=== PATIENT | female | born 1935 | race Hispanic/Latino ===

== ENCOUNTER 2023-09-28 11:16 | Inpatient (IN) ==
[2023-09-28] MEDS ORDERED: IOPAMIDOL 100 ML BOTTLE IV ONE (11:17)
[2023-09-28] MEDS ORDERED: 0.9 % SODIUM CHLORIDE 1,000 ML IV ONE ×2 (12:19→13:53)
[2023-09-28 13:00] LABS: Basophils # (Auto) 0.01 K/mcL (0.00-0.30); Basophils % (Auto) 0.1 % (0.0-2.0); Eosinophils # (Auto) 0 K/mcL (0.00-0.70); Eosinophils % (Auto) 0 % (0.0-7.0); Hematocrit 45.7 % (34.1-44.9); Hemoglobin 15.6 g/dL (11.2-15.7); Lymphocytes # (Auto) 0.66 K/mcL (1.50-4.80); Lymphocytes % (Auto) 5.6 % (15.5-49.0); Mean Cell Volume 91.2 fL (80.0-100.0); Mean Corpuscular HGB Conc 34.1 g/dL (31.0-36.0); Mean Platelet Volume 10.3 fL (8.8-12.5); Monocytes # (Auto) 0.63 K/mcL (0.10-0.90); Monocytes % (Auto) 5.3 % (1.0-12.0); Neutrophils % (Auto) 88.7 % (38.0-78.0); Platelet Count 317 K/mcL (140-440); RBC 5.01 M/mcL (3.59-5.38); Red Cell Distribution Width 12.2 % (11.5-14.5); WBC 11.8 K/mcL (4.5-11.0)
[2023-09-28 13:27] LABS: ALT/SGPT 31 U/L (<40); AST/SGOT 22 U/L (<32); Albumin 4.1 gm/dL (3.2-5.2); Albumin/Globulin Ratio 1.2 (1.0-2.3); Alkaline Phosphatase 125 U/L (39-117); Bilirubin,Total 0.7 mg/dL (0.1-1.0); Blood Urea Nitrogen 15 mg/dL (8-23); Calcium 9.5 mg/dL (8.6-10.4); Carbon Dioxide 18 mmol/L (22-30); Chloride 97 mmol/L (96-108); Globulin 3.5 gm/dL (2.2-3.7); Glomerular Filtration Rate 67; Glucose 442 mg/dL (70-105)
[2023-09-28] MEDS ORDERED: PIPERACILLIN SODIUM/TAZOBACTAM 3.375 GM in DEXTROSE 5% IN WATER 50 ML IV ONE (13:52)
[2023-09-28 14:53] LABS: ABG Methemoglobin 0.3 % (0.4-1.5); Total Hemoglobin 16.1 gm/Dl (12.0-15.0); VBG Base Excess -5 (-2-3); VBG HCO3 17.8 mmol/L (24.0-28.0); VBG Oxygen Saturation 94.5 % (40.0-70.0); VBG PH 7.42 U (7.32-7.42); VBG PO2 138.4 mmHg (25.0-40.0); VBG Total CO2 18.7 mmol/L (25.0-29.0)
[2023-09-28] MEDS ORDERED: INSULIN REGULAR, HUMAN 1 UNIT/0.01 ML UNIT IV ONE (16:33)
[2023-09-28 17:13] LABS: Appearance,Urine Clear (Clear); Bacteria,Urine 0 /hpf (0); Bilirubin,Urine Negative (Negative); Color,Urine Yellow; Culture Indicated,Urine Yes; Glucose,Urine (UA) 500 mg/dL (Negative); Ketones,Urine Trace mg/dL (Negative); Leukocyte Esterase,Urine Negative /uL (Negative); Nitrate,Urine Positive (Negative); Protein,Urine Negative (Negative); Specific Gravity,Urine 1.015 (1.000-1.035); Urine Blood Negative ery/mcL (Negative); Urine Hyaline Cast < 1 /lph (0-2); Urine RBC 4 /hpf (0-3); Urine Squamous Epithelial Cell < 1 /hpf (0-4); Urine WBC 15 /hpf (0-4); Urobilinogen,Urine Normal
[2023-09-28] MEDS ORDERED: ONDANSETRON 4 MG/2 ML VIAL IV PRN (17:56)
[2023-09-28] MEDS ORDERED: DEXTROSE 50% 50 ML VIAL IV PRN (17:59)
[2023-09-28] MEDS ORDERED: DEXTROSE 31 GM ORAL.SUSP PO PRN (17:59)
[2023-09-28 18:20] LABS: Basophils # (Auto) 0.01 K/mcL (0.00-0.30); Basophils % (Auto) 0.1 % (0.0-2.0); Eosinophils # (Auto) 0 K/mcL (0.00-0.70); Eosinophils % (Auto) 0 % (0.0-7.0); Hematocrit 43.7 % (34.1-44.9); Hemoglobin 14.9 g/dL (11.2-15.7); Lymphocytes # (Auto) 1.18 K/mcL (1.50-4.80); Mean Cell Volume 90.9 fL (80.0-100.0); Mean Corpuscular HGB Conc 34.1 g/dL (31.0-36.0); Mean Platelet Volume 9.9 fL (8.8-12.5); Monocytes # (Auto) 1.15 K/mcL (0.10-0.90); Monocytes % (Auto) 8.8 % (1.0-12.0); Neutrophils % (Auto) 81.9 % (38.0-78.0); Platelet Count 303 K/mcL (140-440); RBC 4.81 M/mcL (3.59-5.38); Red Cell Distribution Width 12.4 % (11.5-14.5); WBC 13.1 K/mcL (4.5-11.0)
[2023-09-28 19:09] LABS: Estimated Average Glucose(eAG) 220 mg/dL; Hemoglobin A1C 9.3 % Hgb (4.0-6.0)
[2023-09-28] MEDS: METOCLOPRAMIDE 10 MG/2 ML VIAL IV SCH (20:27)
[2023-09-28] MEDS: 0.9 % SODIUM CHLORIDE 1,000 ML IV SCH (20:27)
[2023-09-28] MEDS: PIPERACILLIN SODIUM/TAZOBACTAM 3.375 GM in DEXTROSE 5% IN WATER 100 ML IV SCH (20:39)
[2023-09-28] MEDS ORDERED: INSULIN LISPRO 1 UNIT/0.01 ML UNIT SQ SCH (21:00)
[2023-09-29] MEDS: INSULIN LISPRO 1 UNIT/0.01 ML UNIT SQ SCH ×4 (00:18→17:42)
[2023-09-29] MEDS: METOCLOPRAMIDE 10 MG/2 ML VIAL IV SCH ×4 (00:19→17:42)
[2023-09-29] MEDS: PIPERACILLIN SODIUM/TAZOBACTAM 3.375 GM in DEXTROSE 5% IN WATER 100 ML IV SCH ×4 (00:40→22:08)
[2023-09-29 06:38] LABS: ALT/SGPT 22 U/L (<40); AST/SGOT 18 U/L (<32); Albumin 3.5 gm/dL (3.2-5.2); Albumin/Globulin Ratio 1.3 (1.0-2.3); Alkaline Phosphatase 94 U/L (39-117); Bilirubin,Direct 0.2 mg/dL (<0.3); Bilirubin,Total 0.9 mg/dL (0.1-1.0); Blood Urea Nitrogen 16 mg/dL (8-23); Calcium 8.8 mg/dL (8.6-10.4); Carbon Dioxide 20 mmol/L (22-30); Chloride 105 mmol/L (96-108); Globulin 2.6 gm/dL (2.2-3.7); Glomerular Filtration Rate 83; Glucose 233 mg/dL (70-105); Lactate Dehydrogenase 156 U/L (135-225); Phosphorous 2.9 mg/dL (2.5-4.5); Triglycerides 112 mg/dL (<150); Uric Acid 1.8 mg/dL (2.5-8.0)
[2023-09-29 06:42] LABS: Basophils # (Auto) 0.02 K/mcL (0.00-0.30); Basophils % (Auto) 0.2 % (0.0-2.0); Eosinophils # (Auto) 0.01 K/mcL (0.00-0.70); Eosinophils % (Auto) 0.1 % (0.0-7.0); Hematocrit 42.4 % (34.1-44.9); Hemoglobin 14.2 g/dL (11.2-15.7); Lymphocytes # (Auto) 1.33 K/mcL (1.50-4.80); Lymphocytes % (Auto) 12.6 % (15.5-49.0); Mean Corpuscular HGB Conc 33.5 g/dL (31.0-36.0); Mean Platelet Volume 10.6 fL (8.8-12.5); Monocytes # (Auto) 1.05 K/mcL (0.10-0.90); Neutrophils % (Auto) 76.7 % (38.0-78.0); Platelet Count 299 K/mcL (140-440); RBC 4.56 M/mcL (3.59-5.38); Red Cell Distribution Width 12.7 % (11.5-14.5); WBC 10.5 K/mcL (4.5-11.0)
[2023-09-29] MEDS: INSULIN GLARGINE, HUMAN 1 UNIT/0.01 ML SQ SCH (08:52)
[2023-09-29] MEDS: 0.9 % SODIUM CHLORIDE 1,000 ML IV SCH (14:30)
[2023-09-30] MEDS: METOCLOPRAMIDE 10 MG/2 ML VIAL IV SCH ×4 (00:04→17:17)
[2023-09-30] MEDS: INSULIN LISPRO 1 UNIT/0.01 ML UNIT SQ SCH ×4 (00:13→17:18)
[2023-09-30] MEDS: 0.9 % SODIUM CHLORIDE 1,000 ML IV SCH ×4 (01:50→19:39)
[2023-09-30] MEDS: PIPERACILLIN SODIUM/TAZOBACTAM 3.375 GM in DEXTROSE 5% IN WATER 100 ML IV SCH ×3 (05:43→22:11)
[2023-09-30 07:54] LABS: ALT/SGPT 18 U/L (<40); AST/SGOT 22 U/L (<32); Albumin 3.5 gm/dL (3.2-5.2); Albumin/Globulin Ratio 1.3 (1.0-2.3); Alkaline Phosphatase 85 U/L (39-117); Bilirubin,Direct < 0.2 mg/dL (0-0.3); Bilirubin,Total 0.6 mg/dL (0.1-1.0); Blood Urea Nitrogen 13 mg/dL (8-23); Calcium 8.5 mg/dL (8.6-10.4); Carbon Dioxide 18 mmol/L (22-30); Chloride 108 mmol/L (96-108); Globulin 2.7 gm/dL (2.2-3.7); Glomerular Filtration Rate 83; Glucose 178 mg/dL (70-105); Lactate Dehydrogenase 164 U/L (135-225); Phosphorous 2.7 mg/dL (2.5-4.5); Triglycerides 96 mg/dL (<150); Uric Acid 1.3 mg/dL (2.5-8.0)
[2023-09-30] MEDS: INSULIN GLARGINE, HUMAN 1 UNIT/0.01 ML SQ SCH (08:28)
[2023-09-30 08:36] LABS: Prothrombin Time 13.7 sec (11.9-14.5)
[2023-09-30] MEDS ORDERED: fentaNYL 100 MCG/2 ML VIAL ONE (08:52)
[2023-09-30] MEDS ORDERED: ROCURONIUM 10 MG/ML ML IV ONE (08:52)
[2023-09-30] MEDS ORDERED: PROPOFOL 200 MG/20 ML VIAL IV ONE (08:52)
[2023-09-30] MEDS ORDERED: ONDANSETRON 4 MG/2 ML VIAL ONE (08:52)
[2023-09-30] MEDS ORDERED: POTASSIUM CHLORIDE 20 MEQ in DEXTROSE 5% IN WATER 250 ML IV ONE (09:02)
[2023-09-30] MEDS ORDERED: PHENYLephrine 1 MG/10 ML SYRINGE (ANEST) ONE (09:53)
[2023-09-30] MEDS ORDERED: BUPIVACAINE PF 0.5% 10 ML VIAL ONE (10:35)
[2023-09-30] MEDS ORDERED: SUGAMMADEX SODIUM 200 MG/2 ML VIAL IV ONE (11:10)
[2023-09-30] MEDS: HYDROmorphone 1 MG/ML SYRINGE IV PRN (18:47)
[2023-09-30] MEDS: 0.9 % SODIUM CHLORIDE 10 ML SYRINGE IV SCH ×3 (18:53→22:11)
[2023-10-01] MEDS: METOCLOPRAMIDE 10 MG/2 ML VIAL IV SCH ×2 (00:12→05:35)
[2023-10-01] MEDS: INSULIN LISPRO 1 UNIT/0.01 ML UNIT SQ SCH ×5 (00:20→23:32)
[2023-10-01] MEDS: 0.9 % SODIUM CHLORIDE 1,000 ML IV SCH ×2 (02:30→10:46)
[2023-10-01] MEDS: PIPERACILLIN SODIUM/TAZOBACTAM 3.375 GM in DEXTROSE 5% IN WATER 100 ML IV SCH ×3 (05:42→22:24)
[2023-10-01] MEDS: HYDROmorphone 1 MG/ML SYRINGE IV PRN (05:58)
[2023-10-01] MEDS: 0.9 % SODIUM CHLORIDE 10 ML SYRINGE IV SCH ×4 (05:59→21:46)
[2023-10-01 06:22] LABS: Basophils # (Auto) 0.03 K/mcL (0.00-0.30); Basophils % (Auto) 0.4 % (0.0-2.0); Eosinophils # (Auto) 0.06 K/mcL (0.00-0.70); Eosinophils % (Auto) 0.8 % (0.0-7.0); Hematocrit 39.7 % (34.1-44.9); Hemoglobin 13.1 g/dL (11.2-15.7); Lymphocytes # (Auto) 1.69 K/mcL (1.50-4.80); Lymphocytes % (Auto) 21.4 % (15.5-49.0); Mean Platelet Volume 10.3 fL (8.8-12.5); Monocytes # (Auto) 0.73 K/mcL (0.10-0.90); Monocytes % (Auto) 9.3 % (1.0-12.0); Platelet Count 257 K/mcL (140-440); RBC 4.18 M/mcL (3.59-5.38); Red Cell Distribution Width 12.7 % (11.5-14.5); WBC 7.9 K/mcL (4.5-11.0)
[2023-10-01 06:30] LABS: ALT/SGPT 19 U/L (<40); AST/SGOT 22 U/L (<32); Albumin/Globulin Ratio 1.3 (1.0-2.3); Alkaline Phosphatase 67 U/L (39-117); Bilirubin,Direct 0.2 mg/dL (<0.3); Bilirubin,Total 0.8 mg/dL (0.1-1.0); Blood Urea Nitrogen 9 mg/dL (8-23); Calcium 8.1 mg/dL (8.6-10.4); Carbon Dioxide 20 mmol/L (22-30); Chloride 107 mmol/L (96-108); Globulin 2.3 gm/dL (2.2-3.7); Glomerular Filtration Rate 83; Glucose 125 mg/dL (70-105); Lactate Dehydrogenase 168 U/L (135-225); Phosphorous 2.6 mg/dL (2.5-4.5); Triglycerides 98 mg/dL (<150); Uric Acid 1.2 mg/dL (2.5-8.0)
[2023-10-01] MEDS: INSULIN GLARGINE, HUMAN 1 UNIT/0.01 ML SQ SCH (09:44)
[2023-10-01] MEDS: HEPARIN 5,000 UNIT/ML VIAL SQ SCH ×2 (09:44→20:30)
[2023-10-01] MEDS: DEXTROSE 5%-1/2NS W/20MEQ KCL 1,000 ML IV SCH (11:42)
[2023-10-01] MEDS: hydrALAZINE 20 MG/ML VIAL IV PRN (12:58)
[2023-10-01] MEDS: ACETAMINOPHEN 1,000 MG/100 ML BAG IV PRN (18:55)
[2023-10-02] MEDS: HYDROmorphone 1 MG/ML SYRINGE IV PRN ×2 (02:37→12:16)
[2023-10-02] MEDS: 0.9 % SODIUM CHLORIDE 10 ML SYRINGE IV SCH ×3 (03:15→21:04)
[2023-10-02] MEDS: DEXTROSE 5%-1/2NS W/20MEQ KCL 1,000 ML IV SCH ×2 (03:16→17:00)
[2023-10-02] MEDS: INSULIN LISPRO 1 UNIT/0.01 ML UNIT SQ SCH ×3 (05:16→17:24)
[2023-10-02] MEDS: PIPERACILLIN SODIUM/TAZOBACTAM 3.375 GM in DEXTROSE 5% IN WATER 100 ML IV SCH ×3 (05:55→21:05)
[2023-10-02 06:12] LABS: Basophils # (Auto) 0.03 K/mcL (0.00-0.30); Basophils % (Auto) 0.5 % (0.0-2.0); Eosinophils # (Auto) 0.13 K/mcL (0.00-0.70); Eosinophils % (Auto) 2.3 % (0.0-7.0); Hematocrit 37.6 % (34.1-44.9); Hemoglobin 12.7 g/dL (11.2-15.7); Lymphocytes # (Auto) 1.46 K/mcL (1.50-4.80); Lymphocytes % (Auto) 25.3 % (15.5-49.0); Mean Cell Volume 93.8 fL (80.0-100.0); Mean Corpuscular HGB Conc 33.8 g/dL (31.0-36.0); Mean Platelet Volume 10.3 fL (8.8-12.5); Monocytes # (Auto) 0.56 K/mcL (0.10-0.90); Monocytes % (Auto) 9.7 % (1.0-12.0); Neutrophils % (Auto) 61.9 % (38.0-78.0); Platelet Count 273 K/mcL (140-440); RBC 4.01 M/mcL (3.59-5.38); Red Cell Distribution Width 12.5 % (11.5-14.5); WBC 5.8 K/mcL (4.5-11.0)
[2023-10-02 07:08] LABS: ALT/SGPT 17 U/L (<40); AST/SGOT 23 U/L (<32); Albumin 2.9 gm/dL (3.2-5.2); Albumin/Globulin Ratio 1.2 (1.0-2.3); Alkaline Phosphatase 78 U/L (39-117); Bilirubin,Direct 0.2 mg/dL (<0.3); Bilirubin,Total 0.8 mg/dL (0.1-1.0); Blood Urea Nitrogen 6 mg/dL (8-23); Calcium 8.3 mg/dL (8.6-10.4); Carbon Dioxide 20 mmol/L (22-30); Chloride 103 mmol/L (96-108); Globulin 2.5 gm/dL (2.2-3.7); Glomerular Filtration Rate 88; Glucose 154 mg/dL (70-105); Lactate Dehydrogenase 175 U/L (135-225); Phosphorous 2.2 mg/dL (2.5-4.5); Triglycerides 118 mg/dL (<150); Uric Acid 1.2 mg/dL (2.5-8.0)
[2023-10-02] MEDS ORDERED: POTASSIUM CHLORIDE 20 MEQ TABLET PO PRN ×2 (07:59)
[2023-10-02] MEDS ORDERED: MAGNESIUM SULFATE 2 GM/50 ML BAG IV PRN (07:59)
[2023-10-02] MEDS ORDERED: POTASSIUM CHLORIDE 40 MEQ in DEXTROSE 5% IN WATER 500 ML IV PRN (07:59)
[2023-10-02] MEDS ORDERED: POTASSIUM CHLORIDE 40 MEQ in DEXTROSE 5% IN WATER 500 ML IV ONE (08:30)
[2023-10-02] MEDS: HEPARIN 5,000 UNIT/ML VIAL SQ SCH ×2 (08:44→21:04)
[2023-10-02] MEDS: hydrALAZINE 20 MG/ML VIAL IV PRN ×2 (08:44→19:02)
[2023-10-02] MEDS: INSULIN GLARGINE, HUMAN 1 UNIT/0.01 ML SQ SCH (08:45)
[2023-10-02] MEDS: METOCLOPRAMIDE 10 MG/2 ML VIAL IV SCH (17:23)
[2023-10-03] MEDS: METOCLOPRAMIDE 10 MG/2 ML VIAL IV SCH ×4 (00:06→17:49)
[2023-10-03] MEDS: hydrALAZINE 20 MG/ML VIAL IV PRN ×3 (00:06→21:33)
[2023-10-03] MEDS: INSULIN LISPRO 1 UNIT/0.01 ML UNIT SQ SCH ×4 (00:25→17:49)
[2023-10-03] MEDS: DEXTROSE 5%-1/2NS W/20MEQ KCL 1,000 ML IV SCH ×2 (05:14→16:58)
[2023-10-03] MEDS: PIPERACILLIN SODIUM/TAZOBACTAM 3.375 GM in DEXTROSE 5% IN WATER 100 ML IV SCH ×4 (05:14→21:33)
[2023-10-03] MEDS: 0.9 % SODIUM CHLORIDE 10 ML SYRINGE IV SCH ×3 (05:16→21:02)
[2023-10-03 05:29] LABS: Basophils # (Auto) 0.02 K/mcL (0.00-0.30); Basophils % (Auto) 0.3 % (0.0-2.0); Eosinophils # (Auto) 0.08 K/mcL (0.00-0.70); Eosinophils % (Auto) 1.2 % (0.0-7.0); Hematocrit 36.9 % (34.1-44.9); Hemoglobin 12.7 g/dL (11.2-15.7); Lymphocytes # (Auto) 1.72 K/mcL (1.50-4.80); Mean Cell Volume 92.9 fL (80.0-100.0); Mean Corpuscular HGB Conc 34.4 g/dL (31.0-36.0); Mean Platelet Volume 9.9 fL (8.8-12.5); Monocytes # (Auto) 0.64 K/mcL (0.10-0.90); Monocytes % (Auto) 9.7 % (1.0-12.0); Neutrophils % (Auto) 62.3 % (38.0-78.0); Platelet Count 294 K/mcL (140-440); RBC 3.97 M/mcL (3.59-5.38); Red Cell Distribution Width 12.8 % (11.5-14.5); WBC 6.6 K/mcL (4.5-11.0)
[2023-10-03 07:25] LABS: ALT/SGPT 14 U/L (<40); AST/SGOT 21 U/L (<32); Albumin 2.9 gm/dL (3.2-5.2); Albumin/Globulin Ratio 1.2 (1.0-2.3); Alkaline Phosphatase 79 U/L (39-117); Bilirubin,Direct 0.2 mg/dL (<0.3); Bilirubin,Total 0.7 mg/dL (0.1-1.0); Blood Urea Nitrogen 5 mg/dL (8-23); Calcium 8.3 mg/dL (8.6-10.4); Carbon Dioxide 17 mmol/L (22-30); Chloride 102 mmol/L (96-108); Globulin 2.4 gm/dL (2.2-3.7); Glomerular Filtration Rate 88; Glucose 185 mg/dL (70-105); Lactate Dehydrogenase 176 U/L (135-225); Phosphorous 1.9 mg/dL (2.5-4.5); Triglycerides 127 mg/dL (<150)
[2023-10-03] MEDS ORDERED: FUROSEMIDE 40 MG/4 ML VIAL IV SCH (08:00)
[2023-10-03] MEDS: HEPARIN 5,000 UNIT/ML VIAL SQ SCH ×2 (08:11→21:32)
[2023-10-03] MEDS: INSULIN GLARGINE, HUMAN 1 UNIT/0.01 ML SQ SCH (08:11)
[2023-10-03] MEDS ORDERED: POTASSIUM PHOSPHATE 40 MEQ in DEXTROSE 5% IN WATER 500 ML IV ONE (08:28)
[2023-10-03] MEDS ORDERED: POTASSIUM CHLORIDE 40 MEQ in DEXTROSE 5% IN WATER 500 ML IV SCH (09:15)
[2023-10-03] MEDS ORDERED: DEXTROSE 5% IV SCH (10:00)
[2023-10-03] MEDS ORDERED: SODIUM PHOSPHATE IV SCH (10:00)
[2023-10-03] MEDS ORDERED: SODIUM PHOSPHATE 30 MMOL in DEXTROSE 5% IN WATER 500 ML IV ONE (10:00)
[2023-10-03] MEDS ORDERED: WATER IV SCH (10:00)
[2023-10-03] MEDS: HYDROmorphone 1 MG/ML SYRINGE IV PRN ×2 (10:02→21:59)
[2023-10-04] MEDS: METOCLOPRAMIDE 10 MG/2 ML VIAL IV SCH ×4 (00:05→18:03)
[2023-10-04] MEDS: INSULIN LISPRO 1 UNIT/0.01 ML UNIT SQ SCH ×4 (00:18→17:14)
[2023-10-04] MEDS: PIPERACILLIN SODIUM/TAZOBACTAM 3.375 GM in DEXTROSE 5% IN WATER 100 ML IV SCH ×3 (05:37→22:29)
[2023-10-04] MEDS: DEXTROSE 5%-1/2NS W/20MEQ KCL 1,000 ML IV SCH (05:38)
[2023-10-04] MEDS: 0.9 % SODIUM CHLORIDE 10 ML SYRINGE IV SCH ×4 (05:55→22:24)
[2023-10-04 07:00] LABS: ALT/SGPT 16 U/L (<40); AST/SGOT 19 U/L (<32); Albumin 2.8 gm/dL (3.2-5.2); Albumin/Globulin Ratio 1.3 (1.0-2.3); Alkaline Phosphatase 80 U/L (39-117); Bilirubin,Direct 0.3 mg/dL (<0.3); Bilirubin,Total 0.6 mg/dL (0.1-1.0); Blood Urea Nitrogen 4 mg/dL (8-23); Calcium 8.1 mg/dL (8.6-10.4); Carbon Dioxide 20 mmol/L (22-30); Chloride 101 mmol/L (96-108); Globulin 2.2 gm/dL (2.2-3.7); Glomerular Filtration Rate 88; Glucose 178 mg/dL (70-105); Lactate Dehydrogenase 144 U/L (135-225); Phosphorous 2.7 mg/dL (2.5-4.5); Triglycerides 126 mg/dL (<150)
[2023-10-04] MEDS: HEPARIN 5,000 UNIT/ML VIAL SQ SCH ×2 (08:09→21:34)
[2023-10-04] MEDS: INSULIN GLARGINE, HUMAN 1 UNIT/0.01 ML SQ SCH (08:09)
[2023-10-04] MEDS: ACETAMINOPHEN 1,000 MG/100 ML BAG IV PRN (08:29)
[2023-10-04] MEDS ORDERED: DEXTROSE 5%-NS W/20MEQ KCL 1,000 ML IV SCH (09:45)
[2023-10-04] MEDS: DEXTROSE 5%-NS 1,000 ML IV SCH (10:49)
[2023-10-04] MEDS ORDERED: POTASSIUM CHLORIDE 40 MEQ in DEXTROSE 5% IN WATER 500 ML IV ONE (13:30)
[2023-10-04] MEDS: hydrALAZINE 20 MG/ML VIAL IV PRN (18:17)
[2023-10-05] MEDS: 0.9 % SODIUM CHLORIDE 10 ML SYRINGE IV SCH ×3 (00:03→14:06)
[2023-10-05] MEDS: INSULIN LISPRO 1 UNIT/0.01 ML UNIT SQ SCH ×3 (00:13→11:35)
[2023-10-05] MEDS: ACETAMINOPHEN 1,000 MG/100 ML BAG IV PRN (00:20)
[2023-10-05] MEDS: DEXTROSE 5%-NS 1,000 ML IV SCH (04:02)
[2023-10-05] MEDS: METOCLOPRAMIDE 10 MG/2 ML VIAL IV SCH ×3 (05:57→11:35)
[2023-10-05] MEDS: PIPERACILLIN SODIUM/TAZOBACTAM 3.375 GM in DEXTROSE 5% IN WATER 100 ML IV SCH ×2 (05:58→13:52)
[2023-10-05 06:24] LABS: Basophils # (Auto) 0.04 K/mcL (0.00-0.30); Basophils % (Auto) 0.6 % (0.0-2.0); Eosinophils # (Auto) 0.17 K/mcL (0.00-0.70); Eosinophils % (Auto) 2.6 % (0.0-7.0); Hematocrit 38.3 % (34.1-44.9); Hemoglobin 13.1 g/dL (11.2-15.7); Lymphocytes # (Auto) 1.92 K/mcL (1.50-4.80); Mean Cell Volume 92.7 fL (80.0-100.0); Mean Corpuscular HGB Conc 34.2 g/dL (31.0-36.0); Mean Platelet Volume 10.1 fL (8.8-12.5); Monocytes # (Auto) 0.66 K/mcL (0.10-0.90); Neutrophils % (Auto) 57.3 % (38.0-78.0); Platelet Count 343 K/mcL (140-440); RBC 4.13 M/mcL (3.59-5.38); WBC 6.6 K/mcL (4.5-11.0)
[2023-10-05 06:42] LABS: ALT/SGPT 28 U/L (<40); AST/SGOT 32 U/L (<32); Albumin 3.1 gm/dL (3.2-5.2); Albumin/Globulin Ratio 1.3 (1.0-2.3); Alkaline Phosphatase 101 U/L (39-117); Bilirubin,Direct 0.2 mg/dL (<0.3); Bilirubin,Total 0.7 mg/dL (0.1-1.0); Blood Urea Nitrogen 2 mg/dL (8-23); Calcium 8.4 mg/dL (8.6-10.4); Carbon Dioxide 19 mmol/L (22-30); Chloride 105 mmol/L (96-108); Globulin 2.4 gm/dL (2.2-3.7); Glomerular Filtration Rate 88; Glucose 153 mg/dL (70-105); Lactate Dehydrogenase 188 U/L (135-225); Phosphorous 2.1 mg/dL (2.5-4.5); Triglycerides 126 mg/dL (<150)
[2023-10-05] MEDS: INSULIN GLARGINE, HUMAN 1 UNIT/0.01 ML SQ SCH (09:21)
[2023-10-05] MEDS: HEPARIN 5,000 UNIT/ML VIAL SQ SCH (09:21)
[2023-10-05] MEDS ORDERED: IBUPROFEN 600 MG TABLET PO PRN (10:00)
== END 2023-10-05 16:25 | disposition home or self-care (01) | DRG 336 ==
LOC: ED 11:16 → ICU 18:39
PROVIDERS: ADMIT Family Medicine Adult Medicine; ATTEND Family Medicine Adult Medicine